=== PATIENT | female | born 1970 | race Caucasian/White ===

== ENCOUNTER 2022-12-31 18:43 | Emergency (ER) | payer MEDICAID ==
[~2022-12-31] VITALS: Ht 157.5 cm; Wt 69.9 kg
[2022-12-31 19:13] VITALS: BP_SYST 108; PULSE 102; RESP 20; TEMP 98; O2SAT 98
[2022-12-31 20:05] LABS: BILIRUBIN,URINE NEGATIVE (NEGATIVE); BLOOD, URINE 1+ (NEGATIVE); CLARITY/URINE CLEAR (CLEAR); COLOR,URINE YELLOW (YELLOW); GLUCOSE,URINE NEGATIVE (NEGATIVE); KETONES,URINE NEGATIVE (NEGATIVE); LEUKOCYTE ESTERASE ,URINE TRACE (NEGATIVE); NITRITE, URINE NEGATIVE (NEGATIVE); PH,URINE 6.5 (5.0-8.0); PROTEIN URINE NEGATIVE (NEGATIVE); UROBILINOGEN,URINE 0.2 (0.2-1.0)
[2022-12-31 20:16] LABS: BACTERIA,URINE RARE /HPF (None Seen); MUCUS,URINE None Seen /LPF (None Seen)
[2022-12-31] MEDS ORDERED: IBUPROFEN 600 MG TABLET PO ONE (20:30)
[2022-12-31] MEDS ORDERED: SULFAMETHOXAZOLE/TRIMETHOPR DS 1 TABLET PO ONE (20:30)
[2022-12-31] MEDS ORDERED: IBUP-1969 PO (20:48)
[2022-12-31] MEDS ORDERED: SULF1TAB48 PO (20:48)
[2022-12-31 21:00] VITALS: BP_SYST 130; PULSE 60; RESP 20; TEMP 98; O2SAT 98
== END 2022-12-31 21:00 | disposition home or self-care (01) ==
LOC: SED 18:43
DX: N39.0 Urinary tract infection, site not specified (principal); R10.30 Lower abdominal pain, unspecified; R35.0 Frequency of micturition; Z79.899 Other long term (current) drug therapy
CPT/HCPCS: 81000; 81001; 81015; 87086; 99283